=== PATIENT | female | born 1995 | race Caucasian/White ===

== ENCOUNTER 2020-08-31 13:31 | Emergency (ER) | payer OTHER | END 2020-08-31 17:20 | disposition home or self-care (01) | LOC: ER1 13:31 | DX: M79.661 Pain in right lower leg (principal); J45.909 Unspecified asthma, uncomplicated; Z90.710 Acquired absence of both cervix and uterus; Z86.718 Personal history of other venous thrombosis and embolism; Z88.0 Allergy status to penicillin; Z88.8 Allergy status to other drugs, medicaments and biological substances | CPT/HCPCS: 93971; 99283 ==

== ENCOUNTER 2020-11-03 16:19 | Emergency (ER) | payer OTHER ==
[2020-11-03 17:02] LABS: HEMOGLOBIN 14.3 gm/dl (12.3-15.3); RED BLOOD COUNT 4.99 M/UL (4.00-5.10); WHITE BLOOD COUNT 9.7 K/UL (4.5-11.0)
[2020-11-03 17:26] LABS: BUN/CREATININE RATIO 11 (0-10)
[2020-11-03] MEDS ORDERED: CEFDINIR300 MG PO (20:41)
== END 2020-11-03 20:52 | disposition home or self-care (01) ==
LOC: ER1 16:19
PROVIDERS: Physician Assistant Medical
DX: N39.0 Urinary tract infection, site not specified (principal); Z90.710 Acquired absence of both cervix and uterus; Z88.0 Allergy status to penicillin; Z88.8 Allergy status to other drugs, medicaments and biological substances
CPT/HCPCS: 80053; 81001; 85025; 87086; 99284

== ENCOUNTER 2020-12-25 15:21 | Emergency (ER) | payer OTHER ==
[~2020-12-25 15:21] MED LIST: CEFDINIR300 MG PO
[2020-12-25 16:03] LABS: HEMOGLOBIN 14.8 gm/dl (12.3-15.3); RED BLOOD COUNT 5.09 M/UL (4.00-5.10); WHITE BLOOD COUNT 10.2 K/UL (4.5-11.0)
[2020-12-25 16:46] LABS: BUN/CREATININE RATIO 10 (0-10)
== END 2020-12-25 17:48 | disposition home or self-care (01) ==
LOC: ER1 15:21
PROVIDERS: Emergency Medicine
DX: R06.02 Shortness of breath (principal); Z20.822 Contact with and (suspected) exposure to COVID-19
CPT/HCPCS: 71275; 80053; 82550; 82553; 83874; 84484; 85025; 93005; 94664; 94760; 96374; 96375; 99285; J1100; J1885; Q9967; U0002

== ENCOUNTER → 2021-01-03 | Outpatient (CLI) | payer OTHER | LOC: KOH-I 15:47 | DX: S83.241A Other tear of medial meniscus, current injury, right knee, initial encounter (principal) | CPT/HCPCS: 73721 ==

== ENCOUNTER 2021-01-20 16:05 | Emergency (ER) | payer OTHER ==
[2021-01-20] MEDS ORDERED: NAPROSYN500 MG PO (17:07)
== END 2021-01-20 17:19 | disposition home or self-care (01) ==
LOC: ER1 16:05
DX: M25.561 Pain in right knee (principal); R20.2 Paresthesia of skin; Z90.710 Acquired absence of both cervix and uterus; Z88.0 Allergy status to penicillin
CPT/HCPCS: 73564; 99284

== ENCOUNTER → 2021-02-14 | Outpatient (CLI) | payer OTHER ==
[~2021-02-14] MED LIST changes: +NAPROSYN500 MG PO
== END ==
LOC: CT 12:00
DX: R10.9 Unspecified abdominal pain (principal); K76.0 Fatty (change of) liver, not elsewhere classified; N20.0 Calculus of kidney; R93.41 Abnormal radiologic findings on diagnostic imaging of renal pelvis, ureter, or bladder; R93.3 Abnormal findings on diagnostic imaging of other parts of digestive tract
CPT/HCPCS: Q9967

== ENCOUNTER 2021-02-21 14:40 | Emergency (ER) | payer OTHER ==
[2021-02-21 15:36] LABS: HEMOGLOBIN 14.2 gm/dl (12.3-15.3); RED BLOOD COUNT 4.94 M/UL (4.00-5.10); WHITE BLOOD COUNT 10.5 K/UL (4.5-11.0)
[2021-02-21 16:04] LABS: BUN/CREATININE RATIO 15 (0-10)
== END 2021-02-21 18:18 | disposition home or self-care (01) ==
LOC: ER1 14:40
PROVIDERS: Physician Assistant
DX: U07.1 COVID-19 (principal); Z86.711 Personal history of pulmonary embolism; Z88.0 Allergy status to penicillin; Z88.3 Allergy status to other anti-infective agents
CPT/HCPCS: 80053; 82550; 82553; 83874; 83880; 84484; 85025; 93005; 99285; Q9967

== ENCOUNTER 2021-02-24 14:45 | Emergency (ER) | payer OTHER ==
[2021-02-24 16:01] LABS: HEMOGLOBIN 14.4 gm/dl (12.3-15.3); RED BLOOD COUNT 5.03 M/UL (4.00-5.10)
[2021-02-24 16:23] LABS: BUN/CREATININE RATIO 19 (0-10)
[2021-02-24] MEDS ORDERED: ONDANSETRON ODT4 MG SL (19:04)
[2021-02-24] MEDS ORDERED: IMODIUM CAP 2 MG2 MG PO (19:04)
== END 2021-02-24 20:06 | disposition home or self-care (01) ==
LOC: ER1 14:45
PROVIDERS: Physician Assistant
DX: K92.1 Melena (principal); R11.0 Nausea; Z86.711 Personal history of pulmonary embolism; J45.909 Unspecified asthma, uncomplicated; Z88.0 Allergy status to penicillin; Z88.3 Allergy status to other anti-infective agents; Z88.8 Allergy status to other drugs, medicaments and biological substances
CPT/HCPCS: 80053; 81001; 83690; 85025; 96374; 99284; J1885; J2405; Q9967

== ENCOUNTER 2021-03-02 16:32 | Emergency (ER) | payer OTHER ==
[~2021-03-02 16:32] MED LIST changes: +IMODIUM CAP 2 MG2 MG PO; +ONDANSETRON ODT4 MG SL
[2021-03-02 19:33] LABS: HEMOGLOBIN 14.4 gm/dl (12.3-15.3); RED BLOOD COUNT 5.08 M/UL (4.00-5.10)
[2021-03-02 20:19] LABS: BUN/CREATININE RATIO 18 (0-10)
== END 2021-03-02 20:36 | disposition left against medical advice (07) ==
LOC: ER1 16:32
PROVIDERS: Emergency Medicine
DX: R10.9 Unspecified abdominal pain (principal); Z88.0 Allergy status to penicillin; Z53.21 Procedure and treatment not carried out due to patient leaving prior to being seen by health care provider
CPT/HCPCS: 80048; 81001; 83690; 84703; 85025; 87086; 99281

== ENCOUNTER → 2021-03-04 | Outpatient (CLI) | payer OTHER | LOC: US 02-28 13:30 | DX: N64.4 Mastodynia (principal); N64.52 Nipple discharge; N64.9 Disorder of breast, unspecified | CPT/HCPCS: 76641-RT ==